=== PATIENT | female | born 1975 | race Caucasian/White ===

== ENCOUNTER 2024-03-06 14:53 | Emergency (ER) | payer BC, SELFPAY ==
[2024-03-06 15:02] VITALS: BP 143/85
[2024-03-06 15:32] LABS: % Basophils 0.2 % (0-2); % Eosinophils 0.4 % (0-6); % Immature Granulocytes 0.2 % (0-0.5); % Lymphocytes 10.4 % (20.5-51.1); % Monocytes 5.9 % (1.7-9.3); % Neutrophils 82.9 % (42.2-75.2); Absolute Eosinophils 0.1 10^3/uL (0-0.7); Absolute Lymphocytes 1.3 10^3/uL (1.2-3.4); Absolute Monocytes 0.8 10^3/uL (0.1-0.6); Absolute Neutrophils 10.6 10^3/uL (1.4-6.5); Hemoglobin 12.8 g/dL (12.0-16.0); Mean Corp Hgb Conc. 32.8 g/dL (33.0-37.0); Mean Corpuscular Volume 88.4 fL (81.0-99.0); Mean Platelet Volume 10.9 fL (7.4-10.4); Nucleated Red Blood Cells % 0 %; Platelet Count 200 10^3/uL (130-400); Red Blood Cell Count 4.41 10^6/uL (4.20-5.40); White Blood Cell Count 12.8 10^3/uL (4.8-10.8)
[2024-03-06 15:45] LABS: ALT (SGPT) 18 U/L (0-35); AST (SGOT) 28 U/L (14-36); Albumin 4.5 g/dl (3.5-5.0); Alkaline Phosphatase 33 U/L (38-126); Blood Urea Nitrogen 21 mg/dl (7-17); Calcium 9.6 mg/dl (8.4-10.2); Carbon Dioxide 29 mmol/L (22-30); Chloride 104 mmol/L (98-107); Glucose 128 mg/dl (70-99); Lactic Acid 1.1 mmol/L (0.7-2.0); Potassium 3.9 mmol/L (3.5-5.1); Sodium 140 mmol/L (135-145); Total Bilirubin 0.7 mg/dl (0.2-1.3); Total Protein 6.9 g/dl (6.3-8.2); eGFR > 60.00
[2024-03-06 16:26] LABS: Erythrocyte Sed Rate 11 mm/hour (0-20)
--- NOTE | 2024-03-06 17:28 | ED.GENMED ---
History of Present Illness
General
Chief Complaint: Post Operative Problem(s)
Source: patient
Exam Limitations: none
Time Seen by Provider: 03/06/24 17:20
History of Present Illness
History of Present Illness:
See MDM
Past History
Past History
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
ED Past Surgical History: Other (Left foot neuroma removal)
Social History
Tobacco: Non-smoker
Living: with family
Employment: Employed
Family History
Family History: Negative Early CAD
Phy Exam
Physical Exam
Physical Exam:
See MDM
Course
Orders/Labs/Results
Orders:
Orders
03/06/24 15:21
C-Reactive Protein Urgent
Complete Blood Count/With Diff Urgent
Comprehensive Metabolic Panel Urgent
Erythrocyte Sed Rate Urgent
Lactic Acid Urgent
03/06/24 17:27
Cephalexin Monohydrate [Keflex] 500 mg PO NOW STA
Ketorolac [Toradol] 30 mg IM NOW STA
Sulfamethox./Trimethoprim Ds [Bactrim Ds 800 mg/160 mg] 1 tablet PO NOW STA
03/06/24 17:28
Wound Culture [Wound/Abscess/Other Culture] Urgent
DEXTER Source: Abscess
Specimen Description:
Comment: Left foot
Abnormal Lab Results
03/06/24
15:21
WBC 12.8 H 10^3/uL
(4.8-10.8)
MCHC 32.8 L g/dL
(33.0-37.0)
MPV 10.9 H fL
(7.4-10.4)
Absolute Neuts (auto) 10.6 H 10^3/uL
(1.4-6.5)
Absolute Monos (auto) 0.8 H 10^3/uL
(0.1-0.6)
Neutrophils % 82.9 H %
(42.2-75.2)
Lymphocytes % 10.4 L %
(20.5-51.1)
BUN 21 H mg/dl
(7-17)
Glucose 128 H mg/dl
(70-99)
Alkaline Phosphatase 33 L U/L
(38-126)
C-Reactive Protein 17.20 H mg/L
(0.0-10.00)
03/06/24 15:21
03/06/24 15:21
Vital Signs
Initial and Last Documented VS:
Initial Vital Signs
Temp Pulse Resp BP Pulse Ox
98.6 F 102 20 143/85 99
03/06/24 15:02 03/06/24 15:02 03/06/24 15:02 03/06/24 15:02 03/06/24 15:02
Last Documented Vital Signs
Temp Pulse Resp BP Pulse Ox
98.6 F 102 20 143/85 99
03/06/24 15:02 03/06/24 15:02 03/06/24 15:02 03/06/24 15:02 03/06/24 15:02
MDM/Problems Addressed
Differential Diagnosis Includes:
HPI and MDM Narrative:
48-year-old female presenting for evaluation of left foot pain and swelling. She recently had a left foot neuroma removed. She has developed pain over the past few days and her surgeon placed her on gabapentin. Patient came to the hospital
because she is now noticing discharge from the surgical site. She denies fevers. She went to urgent care to the emergency department. On exam, she does have mild discharge noted to the surgical site from the neuroma removal to the plantar aspect
of left foot. There is decreased sensation distally but patient states this is a known complication after the surgery and denies any new neuro issue. Cap refill less than [address] patient on Keflex and Bactrim. Wound culture
obtained. Discussed importance of follow-up with her surgeon this week.
Physical exam
General: Well appearing and non-toxic
HEENT: protecting airway
Neck: appears supple
CV: No evidence of cyanosis
Resp: No accessory muscle use
Abd: Non-distended
Extremities: Left foot neuroma site with mild cellulitic changes. Purulent discharge noted
Neuro: alert
Psych: Normal affect
Skin: Intact
Problems Addressed including Acute and Chronic Conditions affecting care:
1. Postoperative infection
Acuity: acute
Prognosis: stable
Details: Will start Keflex and Bactrim. Wound cultures obtained
Differential Diagnosis (but not limited to): Postsurgical pain, postsurgical infection
Testing considered: X-ray but there is not enough time passed to show osteomyelitis
Drug therapy (if applicable): OTC meds, please see d/c instruction regarding Rx drugs
Amount and/or Complexity of Data Reviewed
Clinical info obtained from: Patient
External data reviewed: N/A
Labs I independently reviewed (but not limited to): Mild leukocytosis
Radiology: N/A
Pulse Ox: not hypoxic
EKG independently reviewed: N/A
Envelope Sealer: N/A
Critical Care: N/A
Risk of Complication:
Social Determinants of health: Good social support
Discussed with other providers: N/A
Escalation of Care includes Admit/Obs: After being observed in the Emergency Department, pt stable for discharge.
Occasional wrong word or 'sound a like' substitutions may have occurred due to the inherent limitations of voice recognition software. Read the chart carefully and recognize, using context, where substitutions have occurred.
*Critical Care Note
Total Time (30-74mins, 75-104mins- exclusive of procedures): Not Applicable
ED Attending Note
-
Portions of this chart may have been created with voice recognition software.� Occasional wrong word or��sound alike� substitutions may have occurred due to the inherent limitations of voice recognition software.
Discharge Plan
Departure
Patient Disposition: Home (Routine Discharge)
Date of Disposition: 03/06/24
Time of Disposition: 17:31
Patient with high blood pressure during this ER visit?: Yes
Discharge Problem:
Post-operative infection
Instructions: Wound Care (DC)
Prescriptions:
New
cephalexin 500 mg capsule
500 mg PO BID 10 Days Qty: 20 0RF
sulfamethoxazole-trimethoprim [Bactrim DS] 800-160 mg tablet
1 tab PO BID 10 Days Qty: 20 0RF
oxycodone 5 mg tablet
5 mg PO Q8H PRN (Reason: Pain) Qty: 5 0RF
No Action
ibuprofen 800 MG tablet
PO
TABLET
1 tab PO DAILY
Zantac:
Valtrex
STOOL SOFTENER
Referrals:
Evelin Salvador CRNP [Family Provider] -
Activity Restrictions/Additional Instructions:
Watch for worsening signs of infection: fever over 100.5', increasing pain, red streaks around wound, swelling, or increasing drainage of pus. If any of these happen, return to ED promptly. Make sure that you take all your antibiotics as directed
and finish your prescription even if you feel better before the bottle is empty
Please call your surgeon first thing tomorrow morning and explain that there is concern for postsurgical infection. He will likely want to see you in follow-up quickly. I did obtain a wound culture that your surgeon can follow-up.
Interventions
Interventions:
*General Assessment Last Done: 03/06/24 15:02
Discharge Date and Time
Print Language: OMANI
[2024-03-06] MEDS: KEFLEX 500 MG PO (17:59)
[2024-03-06] MEDS: TORADOL 30 MG IM (17:59)
[2024-03-06] MEDS: BACTRIM DS 800 MG/160 MG 1 TABLET PO (17:59)
== END 2024-03-06 17:50 | disposition home or self-care (01) ==
LOC: EMR 14:53
PROVIDERS: Emergency Medicine; EMERGENCY PHYSICIAN Student in an Organized Health Care Education/Training Program; FAMILY PHYSICIAN Nurse Practitioner
DX: T81.49XA Infection following a procedure, other surgical site, initial encounter (principal); L08.9 Local infection of the skin and subcutaneous tissue, unspecified; Y83.8 Other surgical procedures as the cause of abnormal reaction of the patient, or of later complication, without mention of misadventure at the time of the procedure
CPT/HCPCS: 96372; 99284; 80053; 83605; 85025; 85652; 86140

== ENCOUNTER → 2024-03-18 09:35 | Outpatient (REF) | payer BC, SELFPAY ==
[2024-03-18 12:38] LABS: Free T4 1.13 ng/dl (0.78-2.19)
[2024-03-18 12:52] LABS: TSH 1.84 uIU/ml (0.47-4.68)
== END ==
LOC: HWRAD 09:35
PROVIDERS: ATTENDING PHYSICIAN Internal Medicine Endocrinology, Diabetes & Metabolism; FAMILY PHYSICIAN Nurse Practitioner
DX: E04.2 Nontoxic multinodular goiter (principal)
CPT/HCPCS: 36415; 76536; 84439; 84443

== ENCOUNTER → 2024-03-31 08:54 | Outpatient (REF) | payer BC, SELFPAY | LOC: WDC 08:54 | PROVIDERS: ATTENDING PHYSICIAN Advanced Practice Midwife; FAMILY PHYSICIAN Nurse Practitioner | DX: Z12.31 Encounter for screening mammogram for malignant neoplasm of breast (principal) | CPT/HCPCS: 77063; 77067 ==

== ENCOUNTER → 2024-04-20 13:20 | Outpatient (REF) | payer BC, SELFPAY ==
[2024-04-20 13:48] VITALS: BP 110/56; BP_SYST 72
== END ==
LOC: RADI 13:20
PROVIDERS: ATTENDING PHYSICIAN Internal Medicine Endocrinology, Diabetes & Metabolism; FAMILY PHYSICIAN Nurse Practitioner
DX: E04.1 Nontoxic single thyroid nodule (principal)
CPT/HCPCS: 88173; 10005

== ENCOUNTER → 2025-04-03 07:56 | Outpatient (REF) | payer BC, SELFPAY | LOC: WDC 07:56 | PROVIDERS: ATTENDING PHYSICIAN Advanced Practice Midwife; FAMILY PHYSICIAN Nurse Practitioner | DX: Z12.31 Encounter for screening mammogram for malignant neoplasm of breast (principal) | CPT/HCPCS: 77063; 77067 ==